=== PATIENT | male | born 1975 | race Caucasian/White ===

== ENCOUNTER 2022-08-30 10:46 | Day surgery (SDC) | payer OTHER ==
[~2022-08-30] VITALS: Ht 185.4 cm; Wt 95.7 kg
== END 2022-08-30 12:48 | disposition home or self-care (01) ==
LOC: ORSCSDS 10:46
PROVIDERS: Surgery
PROC: 0DJD8ZZ Inspection of Lower Intestinal Tract, Via Natural or Artificial Opening Endoscopic (ICD-10-PCS; principal; 2022-08-30 12:00)
DX: Z12.11 Encounter for screening for malignant neoplasm of colon (principal); Z80.0 Family history of malignant neoplasm of digestive organs
CPT/HCPCS: J2704; J7120

== ENCOUNTER 2022-09-28 12:14 | Day surgery (SDC) | payer OTHER ==
[~2022-09-28] VITALS: Ht 185.4 cm; Wt 98.2 kg
--- NOTE | 2022-09-28 14:13 | NUR ---
09/28/22 1413 Jay Weller LIDOCAINE 2% WITH EPI 1:100,[address] BLOCK BY DR. MUÑOZ, 7MLS USED. ROPIVICAINE 0.5% MIXED 1:1 WITH LIDOCAINE 1% FOR USE DURING CASE. 30MLS TOTAL ON FIELD.
== END 2022-09-28 16:18 | disposition home or self-care (01) ==
LOC: ORSCSDS 12:14 → ORSCMMR 14:00 → ORSCSDS 16:18
PROVIDERS: Surgery
PROC: 3E0M05Z Introduction of Adhesion Barrier into Peritoneal Cavity, Open Approach (ICD-10-PCS; principal; 2022-09-28 14:00)
PROC: 0YU50JZ Supplement Right Inguinal Region with Synthetic Substitute, Open Approach (ICD-10-PCS; principal; 2022-09-28 14:00)
DX: K40.90 Unilateral inguinal hernia, without obstruction or gangrene, not specified as recurrent (principal)
CPT/HCPCS: A9270; C1781; J0690; J1100; J2405; J2704; J2795; J3010; J7120